=== PATIENT | female | born 1985 | race Caucasian/White ===

== ENCOUNTER 2019-04-18 13:15 | Observation (INO) ==
[2019-04-18] MEDS ORDERED: SODIUM CHLORIDE 0.9% 1,000 ML IV STA (13:34)
[2019-04-18 14:34] LABS: Basophils # 0.1 10*3/uL (0.0-0.2); Basophils % 0.5 % (0.0-0.8); Eosinophils % 0.1 % (0.00-10.9); Hematocrit 38.9 VOL% (35.7-47.0); Hemoglobin 12.6 GM/DL (12.0-16.0); Immature Granulocytes % 0.5 %; Immature Granulocytes Absolute 0.12 #; Lymphocytes # 1.5 10*3/uL (1.4-4.0); Lymphocytes % 6.6 % (21.3-54.2); Mean Corpuscular HGB Conc 32.4 GM/DL (32-36); Mean Corpuscular Volume 85.5 FL (87-102); Mean Platelet Volume 10.2 FL (9.6-12.0); Neutrophils % 85.3 % (38.7-73.9); Platelet Count 403 T/CUMM (130-400); Red Blood Count 4.55 MC/CUMM (3.8-5.5); Red Cell Distribution Width 13.7 % (9.3-17.3); White Blood Count 22.9 T/CUMM (4-12)
[2019-04-18 14:44] LABS: Apearance,Urine CLEAR (Clear); Bilirubin,Urine Negative (Negative); Blood, Urine Moderate mg/dL (Negative); Glucose,Urine (UA) Negative (Negative); Ketones,Urine Negative (Negative); Mucus,Urine Occasional /LPF (Occasional); Nitrite,Urine Negative (Negative); Protein,Urine Negative; RBC,Urine 3 /HPF (0-4); Squamous Epithelial Cell,Urine Occasional /HPF (0-10); Urine Color Yellow (Yellow); Urine Specific Gravity 1.015 (1.001-1.035); Urine Urobilinogen < 2.0 EU/DL (0.2-1.0); WBC,Urine 1 /HPF (0-6)
[2019-04-18 14:52] LABS: PT Patient Result 10.8 SECS (9.6-12.2); Partial Thromboplastin Time 28.7 SECS (20.8-36.0)
[2019-04-18 14:54] LABS: Barbiturates Screen,Urine Negative (Negative); Benzodiazepines Screen,Urine Negative (Negative); Cannabinoid Screen,Urine Negative (Negative); Opiate Screen,Urine Negative (Negative); Phencyclidine Screen,Urine Negative (Negative)
[2019-04-18 14:55] LABS: Lymphocytes 7 % (20-55); Platelet Estimate Normal; Segmented Neutrophils 86 % (50-85); Total Cells Counted 100
[2019-04-18 14:56] LABS: Albumin 3.8 G/DL (3.4-5.0); Bilirubin,Total 1.2 MG/DL (0.2-1.0); Calcium 9.2 MG/DL (8.5-10.1); Osmolality,Calculated 269.1 MOS/KG (273-304); Ovalocytes Few; Total Protein 7.4 G/DL (6.4-8.3)
[2019-04-18 14:57] LABS: Anisocytosis Slight
[2019-04-18 15:02] LABS: Free T4 (Free Thyroxine) 1.55 NG/DL (0.76-1.46); Thyroid Stimulating Hormone 0.752 uIU/ml (0.358-3.74)
[2019-04-18] MEDS ORDERED: fentaNYL 100 MCG/2 ML VIAL IV STA ×2 (15:59→17:05)
[2019-04-18] MEDS ORDERED: ONDANSETRON 4 MG/2 ML VIAL IV STA (15:59)
[2019-04-18] MEDS ORDERED: SUMAtriptan 6 MG/0.5 ML VIAL SUBCUT ONE (16:57)
[2019-04-18] MEDS ORDERED: SUMAtriptan 6 MG/0.5 ML VIAL SUBCUT STA (17:03)
[2019-04-18 17:10] LABS: Appearance,CSF Clear; Lymphocytes,CSF 100 %; Red Blood Cell,CSF 12 C/CUMM; White Blood Cell,CSF 2 C/CUMM
[2019-04-18] MEDS ORDERED: ONDANSETRON 4 MG/2 ML VIAL IV PRN (17:54)
[2019-04-18] MEDS ORDERED: ACETAMINOPHEN 325 MG TABLET PO PRN (17:59)
[2019-04-18] MEDS: SODIUM CHLORIDE 0.9% 1,000 ML IV SCH (18:44)
[2019-04-18] MEDS: cefTRIAXone 2,000 MG in SYRINGE 1 EACH IV SCH (20:32)
[2019-04-18] MEDS: VANCOMYCIN INJ 1,000 MG in SODIUM CHLORIDE 0.9% 250 ML IV SCH (22:06)
[2019-04-18] MEDS: MORPHINE 4 MG/1 ML VIAL IV PRN (22:07)
[2019-04-18] MEDS: diphenhydrAMINE 50 MG/1 ML VIAL IV PRN (23:25)
[2019-04-19] MEDS: SODIUM CHLORIDE 0.9% 1,000 ML IV SCH ×2 (05:14→19:45)
[2019-04-19 05:38] LABS: Basophils # 0.1 10*3/uL (0.0-0.2); Basophils % 0.5 % (0.0-0.8); Eosinophils # 0.1 10*3/uL (0.0-0.87); Eosinophils % 0.4 % (0.00-10.9); Hematocrit 35.1 VOL% (35.7-47.0); Hemoglobin 11.2 GM/DL (12.0-16.0); Immature Granulocytes % 0.6 %; Immature Granulocytes Absolute 0.08 #; Lymphocytes # 2.2 10*3/uL (1.4-4.0); Lymphocytes % 16.4 % (21.3-54.2); Mean Corpuscular HGB Conc 31.9 GM/DL (32-36); Mean Corpuscular Volume 87.1 FL (87-102); Mean Platelet Volume 10.2 FL (9.6-12.0); Monocytes % 9.9 % (1.7-12.7); Neutrophils % 72.2 % (38.7-73.9); Platelet Count 340 T/CUMM (130-400); Red Blood Count 4.03 MC/CUMM (3.8-5.5); Red Cell Distribution Width 13.8 % (9.3-17.3); White Blood Count 13.6 T/CUMM (4-12)
[2019-04-19 06:07] LABS: Calcium 7.9 MG/DL (8.5-10.1); Osmolality,Calculated 269.8 MOS/KG (273-304)
[2019-04-19] MEDS: LEVOTHYROXINE 137 MCG TABLET PO SCH (07:06)
[2019-04-19] MEDS: cefTRIAXone 2,000 MG in SYRINGE 1 EACH IV SCH ×2 (09:15→21:03)
[2019-04-19] MEDS: PANTOPRAZOLE 40 MG TABLET PO SCH (09:15)
[2019-04-19] MEDS: VANCOMYCIN INJ 1,000 MG in SODIUM CHLORIDE 0.9% 250 ML IV SCH ×2 (09:15→22:22)
[2019-04-19] MEDS: MORPHINE 4 MG/1 ML VIAL IV PRN ×3 (09:16→21:01)
[2019-04-19] MEDS: diphenhydrAMINE 50 MG/1 ML VIAL IV PRN (23:59)
[2019-04-20 05:27] LABS: Basophils # 0.1 10*3/uL (0.0-0.2); Basophils % 0.7 % (0.0-0.8); Eosinophils # 0.2 10*3/uL (0.0-0.87); Eosinophils % 1.4 % (0.00-10.9); Hematocrit 33.3 VOL% (35.7-47.0); Hemoglobin 10.2 GM/DL (12.0-16.0); Immature Granulocytes % 0.3 %; Immature Granulocytes Absolute 0.03 #; Lymphocytes # 4.2 10*3/uL (1.4-4.0); Lymphocytes % 39.8 % (21.3-54.2); Mean Corpuscular HGB Conc 30.6 GM/DL (32-36); Mean Corpuscular Volume 90.2 FL (87-102); Mean Platelet Volume 10.4 FL (9.6-12.0); Monocytes % 10.1 % (1.7-12.7); Neutrophils % 47.7 % (38.7-73.9); Platelet Count 324 T/CUMM (130-400); Red Blood Count 3.69 MC/CUMM (3.8-5.5); Red Cell Distribution Width 13.8 % (9.3-17.3); White Blood Count 10.4 T/CUMM (4-12)
[2019-04-20] MEDS: SODIUM CHLORIDE 0.9% 1,000 ML IV SCH (05:49)
[2019-04-20 06:03] LABS: Calcium 7.8 MG/DL (8.5-10.1); Osmolality,Calculated 273.5 MOS/KG (273-304)
[2019-04-20 06:04] LABS: Hypochromasia 1+; Microcytosis Slight; Platelet Estimate Adequate
[2019-04-20] MEDS: LEVOTHYROXINE 137 MCG TABLET PO SCH (06:26)
[2019-04-20] MEDS: cefTRIAXone 2,000 MG in SYRINGE 1 EACH IV SCH (09:12)
[2019-04-20] MEDS: PANTOPRAZOLE 40 MG TABLET PO SCH (09:12)
[2019-04-20 15:55] VITALS: BP 104/55
== END 2019-04-20 17:20 | disposition home health service (06) ==
LOC: N.ED 13:15 → N.EDINP 17:54 → INTOOBSV 17:54 → N.EDINP 18:30 → N.2E 18:35
PROVIDERS: ADMIT Internal Medicine; ATTEND Internal Medicine